=== PATIENT | female | born 1970 | race Caucasian/White ===

== ENCOUNTER 2024-08-08 16:01 | Emergency (ER) | payer OTHER ==
[~2024-08-08] VITALS: Ht 153 cm; Wt 47.7 kg
[2024-08-08 16:05] VITALS: BP 119/78; PULSE 68; RESP 15; TEMP 97.9; O2SAT 97
[2024-08-08] MEDS: ACETAMINOPHEN 325 MG TABLET PO ONE (16:34)
== END 2024-08-08 19:30 | disposition home or self-care (01) ==
LOC: EMS 16:01
DX: S01.01XA Laceration without foreign body of scalp, initial encounter (principal); G44.309 Post-traumatic headache, unspecified, not intractable; W22.8XXA Striking against or struck by other objects, initial encounter; Y93.89 Activity, other specified; Y92.89 Other specified places as the place of occurrence of the external cause; Y99.8 Other external cause status
CPT/HCPCS: 70450; 72125; 99284